=== PATIENT | female | born 1945 | race Caucasian/White ===

== ENCOUNTER → 2024-02-09 | Outpatient (CLI) | payer MEDICARE ==
[2024-02-09 14:51] LABS: Basophils # (A) 0.03 X 10*3/uL (0.00-0.10); Basophils % (A) 0.5 %; Eosinophils # (A) 0.17 X 10*3/uL (0.04-0.35); Eosinophils % (A) 2.6 %; HCT 42.9 % (37.2-46.3); HGB 13.4 g/dL (12.0-15.0); Lymphocytes # (A) 2.11 X 10*3/uL (0.90-5.00); Lymphocytes % (A) 32.5 %; MCHC 31.2 g/dL (32.0-37.0); MCV 89.7 FL (80.0-97.0); Mean Platelet Volume 9.8 FL (9.5-12.2); Monocytes # (A) 0.44 X 10*3/uL (0.20-1.00); Monocytes % (A) 6.8 %; NRBC Per 100 WBC 0 X 10*3/uL (0.00-0.01); Neutrophils # (A) 3.73 X 10*3/uL (1.80-7.70); Neutrophils % (A) 57.3 %; Platelet Count 271 X 10*3/uL (140-440); RBC 4.78 X 10*6/uL (4.10-5.20); RDW 13.2 % (11.5-14.5)
[2024-02-09 15:14] LABS: Chol/HDL Ratio 2.49 Ratio; Magnesium 1.9 mg/dL (1.5-2.4); VLDL Calculation 19.62 mg/dL (5.00-40.00)
[2024-02-09 15:15] LABS: ALT 14 U/L (8-44); AST 16 U/L (13-35); Albumin 4.3 g/dL (3.8-4.9); Albumin/Globulin Ratio 1.95 Ratio (1.60-3.17); Alkaline Phosphatase 85 U/L (41-126); Bilirubin, Conjugated <0.20 mg/dL (0.20-0.40); Bilirubin,Unconjugated >0.40 mg/dL (0.20-1.00); Blood Urea Nitrogen 13.2 mg/dL (9.0-27.0); Calcium 9.4 mg/dL (8.7-10.3); Carbon Dioxide 28.4 mmol/L (21.6-31.8); Chloride 103 mmol/L (96-109); Globulin 2.2 g/dL (1.6-3.3); Glucose 110 mg/dL (70-110); LDL Cholesterol,Calculated 69.5 mg/dL (0.0-131.0); Potassium 4.2 mmol/L (3.5-5.5); Sodium 142 mmol/L (135-145); Total Bilirubin 0.6 mg/dL (0.3-1.2); Total Protein 6.5 g/dL (6.2-8.2)
== END | disposition home or self-care (01) ==
LOC: LABWHC1 09:09
DX: C50.912 Malignant neoplasm of unspecified site of left female breast (principal); E11.69 Type 2 diabetes mellitus with other specified complication; M54.50 Low back pain, unspecified; M25.50 Pain in unspecified joint; G56.03 Carpal tunnel syndrome, bilateral upper limbs; F41.1 Generalized anxiety disorder; F17.200 Nicotine dependence, unspecified, uncomplicated; R76.8 Other specified abnormal immunological findings in serum; M48.02 Spinal stenosis, cervical region; G99.2 Myelopathy in diseases classified elsewhere; L03.818 Cellulitis of other sites; R27.0 Ataxia, unspecified; R12 Heartburn
CPT/HCPCS: 36415; 80048; 80061; 80076; 82043; 82570; 83036; 83735; 84443; 85025

== ENCOUNTER → 2024-06-11 | Outpatient (CLI) | payer MEDICARE ==
[2024-06-11 15:26] LABS: Basophils # (A) 0.03 X 10*3/uL (0.00-0.10); Basophils % (A) 0.5 %; Eosinophils # (A) 0.14 X 10*3/uL (0.04-0.35); Eosinophils % (A) 2.1 %; Lymphocytes # (A) 1.73 X 10*3/uL (0.90-5.00); MCH 28.2 pg (27.0-32.0); MCHC 31.1 g/dL (32.0-37.0); MCV 90.7 FL (80.0-97.0); Monocytes # (A) 0.51 X 10*3/uL (0.20-1.00); Monocytes % (A) 7.7 %; NRBC Per 100 WBC 0 X 10*3/uL (0.00-0.01); Neutrophils # (A) 4.22 X 10*3/uL (1.80-7.70); Neutrophils % (A) 63.4 %; Platelet Count 308 X 10*3/uL (140-440); RBC 4.96 X 10*6/uL (4.10-5.20); RDW 13.3 % (11.5-14.5); WBC 6.65 X 10*3/uL (4.50-10.00)
[2024-06-11 15:48] LABS: ALT 17 U/L (8-44); AST 17 U/L (13-35); Albumin 4.2 g/dL (3.8-4.9); Albumin/Globulin Ratio 1.75 Ratio (1.60-3.17); Alkaline Phosphatase 80 U/L (41-126); BUN/Creat Ratio 24.67 Ratio (12.00-20.00); Bilirubin, Conjugated <0.20 mg/dL (0.20-0.40); Bilirubin,Unconjugated >0.20 mg/dL (0.20-1.00); Blood Urea Nitrogen 14.8 mg/dL (9.0-27.0); Calcium 9.3 mg/dL (8.7-10.3); Carbon Dioxide 30.1 mmol/L (21.6-31.8); Chloride 103 mmol/L (96-109); Globulin 2.4 g/dL (1.6-3.3); Glucose 147 mg/dL (70-110); Magnesium 2.1 mg/dL (1.5-2.4); Potassium 4.2 mmol/L (3.5-5.5); Sodium 143 mmol/L (135-145); Total Bilirubin 0.4 mg/dL (0.3-1.2); Total Protein 6.6 g/dL (6.2-8.2)
== END | disposition home or self-care (01) ==
LOC: LABWHC1 08:35
PROVIDERS: ATTEND Family Medicine
DX: C50.912 Malignant neoplasm of unspecified site of left female breast (principal); M54.50 Low back pain, unspecified; F41.1 Generalized anxiety disorder; R12 Heartburn; M25.50 Pain in unspecified joint; G56.03 Carpal tunnel syndrome, bilateral upper limbs; R27.0 Ataxia, unspecified; F17.200 Nicotine dependence, unspecified, uncomplicated; R76.8 Other specified abnormal immunological findings in serum; M48.02 Spinal stenosis, cervical region; G99.2 Myelopathy in diseases classified elsewhere; E11.69 Type 2 diabetes mellitus with other specified complication; Z68.29 Body mass index [BMI] 29.0-29.9, adult
CPT/HCPCS: 36415; 80048; 80076; 82043; 82570; 82607; 83036; 83735; 85025

== ENCOUNTER 2024-07-02 08:05 | Day surgery (SDC) | payer MEDICARE ==
[2024-06-30 11:46] VITALS: BMI 30.6
[~2024-07-02 08:05] MED LIST: HYDROmorphone 0.5 MG/0.5 ML SYRINGE IVP PRN; MIDAZOLAM 2 MG/2 ML VIAL IV PRN
[2024-07-02] MEDS: ACETAMINOPHEN TAB 500 MG TAB PO PRN (08:39)
[2024-07-02 08:43] VITALS: TEMP 98.3
[2024-07-02] MEDS: HEPARIN SODIUM,PORCINE 5,000 UNIT/ML 1 ML VIAL SQ PRN (08:44)
[2024-07-02] MEDS: LACTATED RINGERS 1,000 ML IV SCH (08:49)
[2024-07-02] MEDS: DEXAMETHASONE SOD PHOSPHATE 4 MG/ML 1 ML VIAL IV ONE (08:49)
[2024-07-02] MEDS: ONDANSETRON 4 MG/2 ML VIAL IVP ONE (08:49)
[2024-07-02 08:50] LABS: Glucose,Whole Blood 129 mg/dL (70-110)
[2024-07-02] MEDS: IV FLUID CONTINUATION 1,000 ML IV ONE (08:57)
[2024-07-02] MEDS ORDERED: PROPOFOL 10 MG/ML 20 ML VIAL IV ONE (08:59)
[2024-07-02] MEDS ORDERED: MIDAZOLAM 2 MG/2 ML VIAL ONE (08:59)
[2024-07-02] MEDS ORDERED: KETAMINE HCL IN 0.9 % NACL 50 MG/5 ML SYRINGE ONE (08:59)
[2024-07-02] MEDS ORDERED: fentaNYL (PF) 50 MCG/ML 2 ML AMP ONE (08:59)
[2024-07-02] MEDS: BUPIVACAINE (PF) 0.25% 30 ML VIAL SQ ONE (09:22)
[2024-07-02] MEDS ORDERED: NALOXONE 0.4 MG/ML 1 ML VIAL IV PRN (10:06)
[2024-07-02 10:11] VITALS: BP 149/72; PULSE 70; RESP 18
--- NOTE | 2024-07-02 10:22 | P.OP ---
Date of Procedure: 07/02/24 Procedure(s) Performed: PREOPERATIVE DIAGNOSIS: Right breast mass/wound POSTOPERATIVE DIAGNOSIS: Same PROCEDURE: Open right breast biopsy SURGEON: Tiffanie EBL: 5 cc ANESTHESIA: Sedation and local COMPLICATIONS: None OPERATIVE PROCEDURE: Patient placed on the operating table in supine position. The patient's right breast prepped and draped sterilely. The patient had a ulcerated lesion of the skin involving the 5:00 location inferior breast. An elliptical incision was made around the mass in a horizontal location after localizing with Marcaine. The subcutaneous tissues were divided using cautery. Specimen was passed off to pathology. Size of specimen 2.5 x 5 cm. Subcutaneous tissues closed using interrupted 3-0 Vicryl sutures. Skin closed using a running 4-0 Monocryl stitch. Skin glue and sterile dressings applied. DISPOSITION: Stable to recovery room
== END 2024-07-02 10:40 | disposition home or self-care (01) ==
LOC: OR 08:05
PROVIDERS: ATTEND Surgery
DX: N63.10 Unspecified lump in the right breast, unspecified quadrant (principal); I10 Essential (primary) hypertension; E78.5 Hyperlipidemia, unspecified; E11.9 Type 2 diabetes mellitus without complications; F17.210 Nicotine dependence, cigarettes, uncomplicated; Z88.2 Allergy status to sulfonamides; Z79.84 Long term (current) use of oral hypoglycemic drugs; Z79.899 Other long term (current) drug therapy
CPT/HCPCS: 88305; 19120; J2250; J1644; J1100; J0690; J2405; J3010; J2704; J0665

== ENCOUNTER → 2024-10-14 | Outpatient (CLI) | payer MEDICARE ==
--- NOTE | 2024-10-14 13:40 | CT ---
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 FINDINGS: The globes are intact and symmetric. The extraocular muscles are symmetric and normal. The optic nerv es are symmetric and normal in size. There are no intra or extraconal masses. The lacrimal glands are symmetric. The preseptal soft tissues are not inflamed. IMPRESSION: No significant abnormality seen. [facility], , 10/14/2024 1:37 PM
== END | disposition home or self-care (01) ==
LOC: RADCTMAIN 13:08
PROVIDERS: ATTEND Ophthalmology Ophthalmic Plastic and Reconstructive Surgery
DX: H57.12 Ocular pain, left eye (principal)
CPT/HCPCS: 70480

== ENCOUNTER → 2024-10-26 | Outpatient (CLI) | payer MEDICARE ==
[2024-10-26 15:50] LABS: Anion Gap 9.80 mmol/L (4.00-12.00); BUN/Creat Ratio 26.20 Ratio (12.00-20.00); Blood Urea Nitrogen 13.1 mg/dL (9.0-27.0); Calcium 8.9 mg/dL (8.7-10.3); Carbon Dioxide 28.2 mmol/L (21.6-31.8); Chloride 102 mmol/L (96-109); Glucose 129 mg/dL (70-110); Magnesium 2.0 mg/dL (1.5-2.4); Potassium 4.7 mmol/L (3.5-5.5); Sodium 140 mmol/L (135-145)
[2024-10-26 15:51] LABS: ALT 22 U/L (8-44); AST 15 U/L (13-35); Albumin 4.1 g/dL (3.8-4.9); Albumin/Globulin Ratio 2.41 Ratio (1.60-3.17); Alkaline Phosphatase 70 U/L (41-126); Bilirubin,Unconjugated 0.19 mg/dL (0.20-1.00); Globulin 1.7 g/dL (1.6-3.3); Total Protein 5.8 g/dL (6.2-8.2); Vitamin B12 318.0 pg/mL (200.0-944.0)
[2024-10-26 15:55] LABS: HCT 43.0 % (37.2-46.3); HGB 13.2 g/dL (12.0-15.0); MCH 27.6 pg (27.0-32.0); MCHC 30.7 g/dL (32.0-37.0); MCV 89.8 FL (80.0-97.0); NRBC Per 100 WBC 0 X 10*3/uL (0.00-0.01); Platelet Count 301 X 10*3/uL (140-440); RBC 4.79 X 10*6/uL (4.10-5.20); RDW 13.7 % (11.5-14.5); WBC 8.81 X 10*3/uL (4.50-10.00)
[2024-10-26 15:56] LABS: Basophils # (A) 0.02 X 10*3/uL (0.00-0.10); Basophils % (A) 0.2 %; Eosinophils # (A) 0.17 X 10*3/uL (0.04-0.35); Eosinophils % (A) 1.9 %; Immature Grans, Automated 0.30 %; Lymphocytes # (A) 2.00 X 10*3/uL (0.90-5.00); Lymphocytes % (A) 22.7 %; Monocytes # (A) 0.61 X 10*3/uL (0.20-1.00); Monocytes % (A) 6.9 %; Neutrophils # (A) 5.98 X 10*3/uL (1.80-7.70); Neutrophils % (A) 68.0 %
== END | disposition home or self-care (01) ==
LOC: LABWHC1 09:40
PROVIDERS: ATTEND Family Medicine
DX: E11.69 Type 2 diabetes mellitus with other specified complication (principal); M54.50 Low back pain, unspecified; C50.912 Malignant neoplasm of unspecified site of left female breast; G56.03 Carpal tunnel syndrome, bilateral upper limbs; F41.1 Generalized anxiety disorder; F17.200 Nicotine dependence, unspecified, uncomplicated; M48.02 Spinal stenosis, cervical region; G99.2 Myelopathy in diseases classified elsewhere; M25.519 Pain in unspecified shoulder; H10.33 Unspecified acute conjunctivitis, bilateral; R27.0 Ataxia, unspecified; R76.8 Other specified abnormal immunological findings in serum; R12 Heartburn
CPT/HCPCS: 36415; 80048; 80076; 82043; 82570; 82607; 83036; 83735; 85025